=== PATIENT | female | born 1960 | race Caucasian/White ===

== ENCOUNTER 2017-02-14 15:26 | Inpatient (IN) | payer OTHER, BC ==
[~2017-02-14] VITALS: Ht 167.6 cm; Wt 79.4 kg
[~2017-02-14 15:26] MED LIST: AMBIEN5 MG PO; ATIVAN1 MG PO; FLEXERIL10 MG PO; LIPITOR40 MG PO; LORTAB 5-500 T1 EACH PO; METOPROLOL TART25 MG PO; PERCOCET 10/1 TABLET PO; VICODIN 5-3001 EACH PO; ZOLOFT100 MG PO
[2017-02-14 17:20] LABS: HEMATOCRIT 37.7 % (36.0-46.0); MCH 26.9 PG (29.0-34.0); MCHC 32.4 G/DL (30.0-36.0); MEAN PLAT.VOLUME 10.2 uM^3 (9.5-12.4); PLATELET COUNT 317 K/uL (156-360); RBC DIS.WIDTH-CV 14.4 % (11.8-14.6); RBC DIS.WIDTH-SD 43.5 % (39-53); RED BLOOD COUNT 4.54 M/uL (3.80-5.20); WHITE BLOOD COUNT 11.2 K/uL (4.1-10.2)
[2017-02-14 17:31] LABS: CHLORIDE 109 mEq/L (99-109); POTASSIUM 3.8 mEq/L (3.7-5.4); SODIUM 142 mEq/L (136-147)
[2017-02-14 17:32] LABS: GLUCOSE 93 mg/dL (70-99)
[2017-02-14 17:34] LABS: ANION GAP 10 MEQ/L (2-14)
[2017-02-14 17:36] LABS: GFR ESTIMATE (CALCULATED) > 59 mL/min/
[2017-02-14 17:37] LABS: UREA NITROGEN (BUN) 25 mg/dL (9-23)
[2017-02-14 17:41] LABS: ERTH.SED.RATE 48 MM/HR (0-30)
[2017-02-14 17:57] LABS: TROP-I INTERPRETATION NEGATIVE; TROPONIN-I < 0.01 ng/mL (0.0-0.30)
[2017-02-14 18:09] LABS: C-REACTIVE PROTEIN 32.6 MG/L (0-10)
[2017-02-14] MEDS ORDERED: BUSPAR15 MG PO (19:29)
[2017-02-14] MEDS ORDERED: FLEXERIL10 MG PO (19:30)
[2017-02-14] MEDS ORDERED: ATORVASTATIN CA40 MG PO (19:30)
[2017-02-14 19:47] LABS: ADD MIUA? YES; BILIRUBIN NEGATIVE; BLOOD NEGATIVE; COLOR YELLOW ((YELLOW)); GLUCOSE (STRIP) NEGATIVE; KETONES NEGATIVE; LEUKOCYTES LARGE; NITRITE NEGATIVE; PROTEIN (STRIP) NEGATIVE; SPECIFIC GRAVITY 1.028 (1.000-1.030); UROBILINOGEN 0.2 MG/DL (0.2-1.0)
[2017-02-14 19:58] LABS: AMPHETAMINE NEGATIVE (500 ng/mL); BARBITURATES NEGATIVE (200 ng/mL); BENZODIAZEPINES NEGATIVE (150 ng/mL); COCAINE NEGATIVE (150 ng/mL); INTERNAL CONTROLS VALID? YES; METHADONE NEGATIVE (200 ng/mL); METHAMPHETAMINE NEGATIVE (500 ng/mL); OPIATES (MORPHINE) NEGATIVE (100 ng/mL); OXYCODONE NEGATIVE (100 ng/mL); PHENCYCLIDINE NEGATIVE (25 ng/mL); PROPOXYPHENE NEGATIVE (300 ng/mL); THC CANNABINOIDS NEGATIVE (50 ng/mL); TRICYCLIC ANTIDEPRESSANTS PRESUMPTIVE POSITIVE (300 ng/mL)
[2017-02-14 20:23] LABS: BACTERIA 4+ /HPF; CASTS NONE SEEN /LPF; EPITHELIAL CELLS 4+ /HPF; MUCUS 1+ /LPF; RED BLOOD CELLS NONE SEEN /HPF (0-5); UCUL ADDED? YES; WHITE BLOOD CELLS 30-40 /HPF (0-5)
[2017-02-14 20:35] LABS: TROP-I INTERPRETATION NEGATIVE; TROPONIN-I < 0.01 ng/mL (0.0-0.30)
[2017-02-14 23:51] LABS: CHLORIDE 106 mEq/L (99-109); POTASSIUM 3.9 mEq/L (3.7-5.4); SODIUM 136 mEq/L (136-147)
[2017-02-14 23:52] LABS: GLUCOSE 129 mg/dL (70-99)
[2017-02-14 23:54] LABS: ANION GAP 10 MEQ/L (2-14)
[2017-02-14 23:56] LABS: GFR ESTIMATE (CALCULATED) > 59 mL/min/
[2017-02-14 23:57] LABS: UREA NITROGEN (BUN) 21 mg/dL (9-23)
[2017-02-15] VITALS (19 sets, daily range): BP systolic 0–141; BP diastolic 0–96
[2017-02-15 00:59] LABS: METH RESISTANT S AUREUS PCR NEGATIVE (NEGATIVE)
[2017-02-15 01:02] LABS: PROBE CHECK PASS; SPECIMEN PROCESSING CONTROL PASS
[2017-02-15 05:38] LABS: HEMATOCRIT 36.6 % (36.0-46.0); MCH 26.5 PG (29.0-34.0); MEAN PLAT.VOLUME 10.2 uM^3 (9.5-12.4); PLATELET COUNT 298 K/uL (156-360); RBC DIS.WIDTH-CV 14.3 % (11.8-14.6); RED BLOOD COUNT 4.41 M/uL (3.80-5.20); WHITE BLOOD COUNT 12.7 K/uL (4.1-10.2)
[2017-02-15 06:05] LABS: ANION GAP 11 MEQ/L (2-14); CHLORIDE 109 MEQ/L (99-109); GFR ESTIMATE (CALCULATED) > 59 mL/min/; GLUCOSE 154 mg/dL (70-99); MAGNESIUM 1.8 mg/dl (1.3-2.7); POTASSIUM 4.2 MEQ/L (3.7-5.4); SAMPLE HEMOLYSIS CHECK 0; SAMPLE ICTERIC CHECK 0; SAMPLE LIPEMIA CHECK 0; SODIUM 141 MEQ/L (136-147); UREA NITROGEN (BUN) 18 mg/dL (9-23)
[2017-02-16 04:46] VITALS: BP 120/68
[2017-02-16 06:05] LABS: HEMATOCRIT 32.9 % (36.0-46.0); MCH 26.8 PG (29.0-34.0); MCHC 32.5 G/DL (30.0-36.0); MCV 82.3 FL (83-99); MEAN PLAT.VOLUME 10.1 uM^3 (9.5-12.4); PLATELET COUNT 269 K/uL (156-360); RBC DIS.WIDTH-CV 14.2 % (11.8-14.6); RBC DIS.WIDTH-SD 42.6 % (39-53); WHITE BLOOD COUNT 10.3 K/uL (4.1-10.2)
[2017-02-16 06:26] LABS: ANION GAP 11 MEQ/L (2-14); CHLORIDE 112 MEQ/L (99-109); GFR ESTIMATE (CALCULATED) > 59 mL/min/; GLUCOSE 131 mg/dL (70-99); POTASSIUM 3.5 MEQ/L (3.7-5.4); SAMPLE HEMOLYSIS CHECK 0; SAMPLE ICTERIC CHECK 0; SAMPLE LIPEMIA CHECK 0; SODIUM 146 MEQ/L (136-147); UREA NITROGEN (BUN) 11 mg/dL (9-23)
[2017-02-16 07:25] VITALS: BP 104/58
[2017-02-16 11:30] VITALS: BP 108/64
[2017-02-16] MEDS ORDERED: FLEXERIL10 MG PO (14:31)
[2017-02-16] MEDS ORDERED: BUSPAR15 MG PO (14:31)
[2017-02-16] MEDS ORDERED: AMBIEN10 MG PO (14:33)
[2017-02-16] MEDS ORDERED: LIPITOR40 MG PO (14:33)
[2017-02-16] MEDS ORDERED: MOBIC15 MG PO (14:34)
[2017-02-16] MEDS ORDERED: ZOLOFT100 MG PO (14:34)
[2017-02-16] MEDS ORDERED: ERGOCALCIF50000 UNIT PO (14:35)
[2017-02-16 16:00] VITALS: BP 129/68
[2017-02-16 19:33] VITALS: BP 116/59
[2017-02-17] VITALS (7 sets, daily range): BP systolic 104–120; BP diastolic 62–79
[2017-02-17 07:00] LABS: MCH 26.6 PG (29.0-34.0); MCHC 31.9 G/DL (30.0-36.0); MCV 83.3 FL (83-99); MEAN PLAT.VOLUME 10.3 uM^3 (9.5-12.4); PLATELET COUNT 267 K/uL (156-360); RBC DIS.WIDTH-CV 14.3 % (11.8-14.6); RBC DIS.WIDTH-SD 43.8 % (39-53); RED BLOOD COUNT 4.32 M/uL (3.80-5.20)
[2017-02-17 07:06] LABS: ANION GAP 14 MEQ/L (2-14); CHLORIDE 106 MEQ/L (99-109); POTASSIUM 3.7 MEQ/L (3.7-5.4); SAMPLE HEMOLYSIS CHECK 0; SAMPLE ICTERIC CHECK 0; SAMPLE LIPEMIA CHECK 0; SODIUM 142 MEQ/L (136-147)
[2017-02-17 07:12] LABS: GFR ESTIMATE (CALCULATED) > 59 mL/min/; GLUCOSE 104 mg/dL (70-99); UREA NITROGEN (BUN) 9 mg/dL (9-23)
[2017-02-18 04:25] VITALS: BP 121/69
[2017-02-18 07:15] LABS: HEMATOCRIT 35.4 % (36.0-46.0); MCH 26.1 PG (29.0-34.0); MCHC 31.9 G/DL (30.0-36.0); MCV 81.8 FL (83-99); PLATELET COUNT 285 K/uL (156-360); RBC DIS.WIDTH-CV 13.9 % (11.8-14.6); RBC DIS.WIDTH-SD 41.6 % (39-53); RED BLOOD COUNT 4.33 M/uL (3.80-5.20); WHITE BLOOD COUNT 9.7 K/uL (4.1-10.2)
[2017-02-18 07:43] VITALS: BP 108/56
[2017-02-18 07:43] LABS: ANION GAP 10 MEQ/L (2-14); CHLORIDE 106 MEQ/L (99-109); GFR ESTIMATE (CALCULATED) > 59 mL/min/; GLUCOSE 111 mg/dL (70-99); POTASSIUM 3.7 MEQ/L (3.7-5.4); SAMPLE HEMOLYSIS CHECK 0; SAMPLE ICTERIC CHECK 0; SAMPLE LIPEMIA CHECK 0; SODIUM 142 MEQ/L (136-147); UREA NITROGEN (BUN) 10 mg/dL (9-23)
[2017-02-18 11:30] VITALS: BP 110/66
[2017-02-18 16:00] VITALS: BP 117/73
[2017-02-18 20:00] VITALS: BP 123/78
[2017-02-19 04:05] VITALS: BP 117/71
[2017-02-19 05:35] LABS: HEMATOCRIT 38.3 % (36.0-46.0); MCH 27.1 PG (29.0-34.0); MCHC 32.4 G/DL (30.0-36.0); MCV 83.8 FL (83-99); PLATELET COUNT 303 K/uL (156-360); RBC DIS.WIDTH-CV 14.2 % (11.8-14.6); RBC DIS.WIDTH-SD 42.8 % (39-53); RED BLOOD COUNT 4.57 M/uL (3.80-5.20); WHITE BLOOD COUNT 8.5 K/uL (4.1-10.2)
[2017-02-19 06:40] LABS: ANION GAP 14 MEQ/L (2-14); CHLORIDE 104 MEQ/L (99-109); GFR ESTIMATE (CALCULATED) > 59 mL/min/; GLUCOSE 101 mg/dL (70-99); POTASSIUM 3.9 MEQ/L (3.7-5.4); SAMPLE HEMOLYSIS CHECK 0; SAMPLE ICTERIC CHECK 0; SAMPLE LIPEMIA CHECK 0; SODIUM 140 MEQ/L (136-147); UREA NITROGEN (BUN) 11 mg/dL (9-23)
[2017-02-19 07:12] VITALS: BP 104/74
[2017-02-19 11:05] VITALS: BP 121/81
[2017-02-19 15:35] VITALS: BP 116/78
[2017-02-19 19:10] VITALS: BP 110/74
[2017-02-19 23:50] VITALS: BP 133/75
[2017-02-20 05:20] LABS: HEMATOCRIT 35.9 % (36.0-46.0); MCH 27.2 PG (29.0-34.0); MCHC 33.1 G/DL (30.0-36.0); PLATELET COUNT 298 K/uL (156-360); RBC DIS.WIDTH-CV 13.9 % (11.8-14.6); RBC DIS.WIDTH-SD 41.3 % (39-53); RED BLOOD COUNT 4.38 M/uL (3.80-5.20); WHITE BLOOD COUNT 9.6 K/uL (4.1-10.2)
[2017-02-20 05:36] VITALS: BP 120/75
[2017-02-20 05:43] LABS: ANION GAP 13 MEQ/L (2-14); CHLORIDE 104 MEQ/L (99-109); GFR ESTIMATE (CALCULATED) > 59 mL/min/; GLUCOSE 105 mg/dL (70-99); MAGNESIUM 2.1 mg/dl (1.3-2.7); POTASSIUM 3.9 MEQ/L (3.7-5.4); SAMPLE HEMOLYSIS CHECK 0; SAMPLE ICTERIC CHECK 0; SAMPLE LIPEMIA CHECK 0; SODIUM 142 MEQ/L (136-147); UREA NITROGEN (BUN) 14 mg/dL (9-23)
[2017-02-20 07:16] VITALS: BP 121/74
[2017-02-20 15:44] VITALS: BP 124/82
[2017-02-20 19:10] VITALS: BP 130/60
[2017-02-21] VITALS (9 sets, daily range): BP systolic 62–125; BP diastolic 49–85
[2017-02-21 06:18] LABS: HEMATOCRIT 36.7 % (36.0-46.0); MCH 27.1 PG (29.0-34.0); MCHC 33.2 G/DL (30.0-36.0); MCV 81.6 FL (83-99); PLATELET COUNT 313 K/uL (156-360); RBC DIS.WIDTH-CV 13.8 % (11.8-14.6); RBC DIS.WIDTH-SD 41.1 % (39-53); WHITE BLOOD COUNT 10.8 K/uL (4.1-10.2)
[2017-02-21 06:48] LABS: ANION GAP 12 MEQ/L (2-14); CHLORIDE 103 MEQ/L (99-109); GFR ESTIMATE (CALCULATED) > 59 mL/min/; GLUCOSE 108 mg/dL (70-99); MAGNESIUM 2.1 mg/dl (1.3-2.7); POTASSIUM 3.8 MEQ/L (3.7-5.4); SAMPLE HEMOLYSIS CHECK 0; SAMPLE ICTERIC CHECK 0; SAMPLE LIPEMIA CHECK 0; SODIUM 140 MEQ/L (136-147); UREA NITROGEN (BUN) 18 mg/dL (9-23)
[2017-02-22] VITALS (7 sets, daily range): BP systolic 88–125; BP diastolic 64–89
[2017-02-23] VITALS (7 sets, daily range): BP systolic 110–129; BP diastolic 59–86
[2017-02-24 03:21] VITALS: BP 102/65
[2017-02-24 07:42] VITALS: BP 118/71
[2017-02-24 12:13] VITALS: BP 115/71
[2017-02-24 16:30] VITALS: BP 124/67
[2017-02-24 19:32] VITALS: BP 113/78
[2017-02-24 23:27] VITALS: BP 117/71
[2017-02-25 03:27] VITALS: BP 119/74
[2017-02-25 07:43] VITALS: BP 111/66
[2017-02-25 11:36] VITALS: BP 114/76
[2017-02-25 15:23] VITALS: BP 117/77
[2017-02-25 19:30] VITALS: BP 108/63
[2017-02-25 23:04] VITALS: BP 126/73
[2017-02-26 02:54] VITALS: BP 114/60
[2017-02-26 07:42] VITALS: BP 122/74
[2017-02-26 11:33] VITALS: BP 126/78
[2017-02-26 15:23] VITALS: BP 112/69
[2017-02-26 20:00] VITALS: BP 120/83
[2017-02-26 23:28] VITALS: BP 125/69
[2017-02-27 04:13] VITALS: BP 121/69
[2017-02-27 07:07] VITALS: BP 103/58
[2017-02-27 16:19] VITALS: BP 111/70
[2017-02-27 23:06] VITALS: BP 120/64
[2017-02-28 07:30] VITALS: BP 113/61
[2017-02-28 15:40] VITALS: BP 118/80
[2017-02-28 23:45] VITALS: BP 105/60
[2017-03-01 08:27] VITALS: BP 119/78
[2017-03-01 17:07] VITALS: BP 123/70
[2017-03-02 00:03] VITALS: BP 116/69
[2017-03-02 07:08] VITALS: BP 122/66
[2017-03-02 15:30] VITALS: BP 108/64
[2017-03-03 00:17] VITALS: BP 115/68
[2017-03-03 07:14] VITALS: BP 103/51
[2017-03-03 16:03] VITALS: BP 100/61
[2017-03-04 00:21] VITALS: BP 115/70
[2017-03-04 07:20] VITALS: BP 113/70
[2017-03-04 15:42] VITALS: BP 118/59
[2017-03-04 23:10] VITALS: BP 105/66
[2017-03-05 07:03] VITALS: BP 111/69
[2017-03-05 15:00] VITALS: BP 110/67
[2017-03-05 23:34] VITALS: BP 117/82
[2017-03-06 07:57] VITALS: BP 109/69
[2017-03-06 23:30] VITALS: BP 116/76
[2017-03-07 07:34] VITALS: BP 112/69
[2017-03-07 16:21] VITALS: BP 110/70
[2017-03-07 23:10] VITALS: BP 121/71
[2017-03-08 07:01] VITALS: BP 124/74
[2017-03-08] MEDS ORDERED: DIVALPROEX SOD500 M1 PO (12:32)
== END 2017-03-08 15:34 | disposition home or self-care (01) | DRG 25 ==
LOC: EME 15:26 → 4EAST 18:52 → 3EAST 18:52 → 4WEST 18:52 → EDOF 18:52 → ENRESERV 18:58 → 4WEST 23:35 → ENRESERV 02-15 22:44 → 4EAST 02-15 23:30 → ENRESERV 02-21 13:32 → 4EAST 02-21 13:45 → ENRESERV 02-21 13:48 → 4WEST 02-21 14:04 → ENRESERV 02-23 11:43 → 3EAST 02-23 13:41
PROVIDERS: Emergency Medicine; Internal Medicine Critical Care Medicine; Neurological Surgery
PROC: 00C40ZZ Extirpation of Matter from Intracranial Subdural Space, Open Approach (ICD-10-PCS; principal; 2017-02-14)
DX: S06.5X9A Traumatic subdural hemorrhage with loss of consciousness of unspecified duration, initial encounter (principal); S06.2X9A Diffuse traumatic brain injury with loss of consciousness of unspecified duration, initial encounter; N39.0 Urinary tract infection, site not specified; R47.01 Aphasia; I10 Essential (primary) hypertension; G89.18 Other acute postprocedural pain; F32.9 Major depressive disorder, single episode, unspecified; G93.6 Cerebral edema; R56.9 Unspecified convulsions; S02.91XA Unspecified fracture of skull, initial encounter for closed fracture; F19.21 Other psychoactive substance dependence, in remission; D64.9 Anemia, unspecified; F41.9 Anxiety disorder, unspecified; E78.00 Pure hypercholesterolemia, unspecified; Z96.649 Presence of unspecified artificial hip joint; Z68.32 Body mass index [BMI] 32.0-32.9, adult
CPT/HCPCS: 70450; 70553; 71020; 80048; 80048 91; 81003; 83735; 84100; 84484; 85027; 85651; 86140; 87040; 87070; 87075; 87086; 87205; 87641; 92507 GN; 92523 GN; 93005; 97530 GO; 97530 GP; 97532 GN; 99281; 99284; C1713; J0330; J0690; J1100; J1170; J1953; J2060; J2405; J2543; J2710; J3010; J3480; J7050